=== PATIENT | female | born 1975 | race Caucasian/White ===

== ENCOUNTER → 2017-09-05 | Outpatient (CLI) | payer OTHER ==
[~2017-09-05] MED LIST: CODACE30 PO; FISH1000 PO; Hair, Skin & N1 EACH PO; LAVAP17G PO; Mobic15 MG PO; ONDA4 PO; PROM25S PR; TRAM50 PO; VITAMIN D-32000 UNIT PO; ZOLP10 PO
[2017-09-07 05:15] LABS: HIV SCREEN 4TH GENERATION WRFX Non Reactive (Non Reactive)
[2017-09-07 13:10] LABS: HBSAG SCREEN Negative (Negative); HCV ANTIBODY <0.1 (0.0-0.9)
== END | disposition home or self-care (01) ==
LOC: LAB EV 18:32 → LAB SHORT 18:32
PROVIDERS: Family Medicine
DX: Z20.9 Contact with and (suspected) exposure to unspecified communicable disease (principal)
CPT/HCPCS: 84460; 86317; 86803; 87340; 87389

== ENCOUNTER 2022-05-03 04:25 | Emergency (ER) | payer OTHER ==
[~2022-05-03] VITALS: Ht 157.5 cm; Wt 68.0 kg
[2022-05-03] MEDS ORDERED: Ciprofloxacin2.5 ML TOP (05:10)
[2022-05-03] MEDS ORDERED: KETOROLAC TROMET5 ML TOP (05:10)
== END 2022-05-03 05:31 | disposition home or self-care (01) ==
LOC: ER 04:25
DX: S05.01XA Injury of conjunctiva and corneal abrasion without foreign body, right eye, initial encounter (principal); X10.2XXA Contact with fats and cooking oils, initial encounter; Z88.0 Allergy status to penicillin; Z91.038 Other insect allergy status; Z79.899 Other long term (current) drug therapy
CPT/HCPCS: A9270

== ENCOUNTER 2024-10-18 01:50 | Day surgery (SDC) | payer OTHER ==
[~2024-10-18 01:50] MED LIST changes: +Ciprofloxacin2.5 ML TOP; +KETOROLAC TROMET5 ML TOP
[2024-10-18] MEDS ORDERED: Lidocaine HCl 4% Cream 5 GM ONE (12:30)
== END 2024-10-18 23:00 | disposition home or self-care (01) ==
LOC: WOUND 01:50
DX: T81.31XD Disruption of external operation (surgical) wound, not elsewhere classified, subsequent encounter (principal); S21.001D Unspecified open wound of right breast, subsequent encounter; S31.105D Unspecified open wound of abdominal wall, periumbilic region without penetration into peritoneal cavity, subsequent encounter; S31.109D Unspecified open wound of abdominal wall, unspecified quadrant without penetration into peritoneal cavity, subsequent encounter; I10 Essential (primary) hypertension; E78.5 Hyperlipidemia, unspecified; Z91.030 Bee allergy status
CPT/HCPCS: A9270; G0463

== ENCOUNTER 2024-11-08 03:34 | Day surgery (SDC) | payer OTHER ==
[2024-11-08] MEDS ORDERED: Lidocaine HCl 4% Cream 5 GM ONE (09:08)
== END 2024-11-08 23:03 | disposition home or self-care (01) ==
LOC: WOUND 03:34
DX: T81.31XA Disruption of external operation (surgical) wound, not elsewhere classified, initial encounter (principal); S21.002A Unspecified open wound of left breast, initial encounter; S21.001A Unspecified open wound of right breast, initial encounter; S31.109A Unspecified open wound of abdominal wall, unspecified quadrant without penetration into peritoneal cavity, initial encounter; I10 Essential (primary) hypertension; E78.5 Hyperlipidemia, unspecified
CPT/HCPCS: A9270